=== PATIENT | female | born 1955 | race Caucasian/White ===

== ENCOUNTER 2019-04-23 10:52 | Day surgery (SDC) | payer OTHER ==
[~2019-04-23] VITALS: Ht 167.6 cm; Wt 123.4 kg
[~2019-04-23 10:52] MED LIST: ATEN50TA2 PO; BIMA01SOL OU; LISI-538 PO; METF-877 PO; NS 1,000 ML IV ONE; VITA500T PO
[2019-04-23] MEDS ORDERED: propofoL 500 MG/50 ML VIAL As Ordered ONE (12:16)
[2019-04-23] MEDS ORDERED: LIDOCAINE 2% INJ 100 MG/5 ML SDV (FOR ANES.) As Ordered ONE (12:16)
--- NOTE | 2019-04-23 12:45 | ROOR ---
Patient Name: Katlyn Guerrero Procedure Date: 04/23/2019 12:01 PM Date of : 1955 Age: 64 Room: [facility] Gender: Female Note Status: Finalized Procedure: Colonoscopy Indications: Screening for colorectal malignant neoplasm Providers: José Luis Jarrett Jr, MD Referring MD: RAQUEL LARKIN NP Requesting Provider: Medicines: Propofol per Anesthesia Complications: No immediate complications. Procedure: Pre-Anesthesia Assessment: - Prior to the procedure, a History and Physical was performed, and patient medications and allergies were reviewed. The patient is competent. The risks and benefits of the procedure and the sedation options and risks were discussed with the patient. All questions were answered and informed consent was obtained. Patient identification and proposed procedure were verified by the physician and the nurse in the pre-procedure area and in the procedure room. Mental Status Examination: alert and oriented. Airway Examination: normal oropharyngeal airway and neck mobility. Respiratory Examination: clear to auscultation. CV Examination: normal. ASA Grade Assessment: III - A patient with severe systemic disease. After reviewing the risks and benefits, the patient was deemed in satisfactory condition to undergo the procedure. The anesthesia plan was to use moderate sedation / analgesia (conscious sedation). Immediately prior to administration of medications, the patient was re-assessed for adequacy to receive sedatives. The heart rate, respiratory rate, oxygen saturations, blood pressure, adequacy of pulmonary ventilation, and response to care were monitored throughout the procedure. The physical status of the patient was re-assessed after the procedure. The Colonoscope was introduced through the anus and advanced to the cecum, identified by appendiceal orifice and ileocecal valve. The colonoscopy was performed without difficulty. The patient tolerated the procedure well. The quality of the bowel preparation was adequate. Findings: A few small-mouthed diverticula were found in the sigmoid colon. A large polyp was found in the rectum. The polyp was pedunculated. The polyp was removed with a hot snare. Resection and retrieval were complete. To prevent bleeding after the polypectomy, one hemostatic clip was successfully placed. There was no bleeding at the end of the procedure. A medium polyp was found in the sigmoid colon. The polyp was pedunculated. The polyp was removed with a hot snare. Resection and retrieval were complete. To prevent bleeding after the polypectomy, one hemostatic clip was successfully placed. There was no bleeding at the end of the procedure. A small polyp was found in the ascending colon. The polyp was removed with a cold snare. Resection and retrieval were complete. The recto-sigmoid colon, transverse colon, cecum, appendiceal orifice and ileocecal valve appeared normal. Impression: - Diverticulosis in the sigmoid colon. - One large polyp in the rectum, removed with a hot snare. Resected and retrieved. Clip was placed. - One medium polyp in the sigmoid colon, removed with a hot snare. Resected and retrieved. Clip was placed. - One small polyp in the ascending colon, removed with a cold snare. Resected and retrieved. - The recto-sigmoid colon, transverse colon, cecum, appendiceal orifice and ileocecal valve are normal. Recommendation: - Discharge patient to home (ambulatory). - Repeat colonoscopy in 3 years for surveillance based on pathology results. - Return to my office at appointment to be scheduled. José Luis Jarrett MD José Luis Jarrett Jr, MD 04/23/2019 12:44:44 PM Electronically signed by José Luis Jarrett Jr, MD Number of Addenda: 0 Note Initiated On: 04/23/2019 12:01 PM Estimated Blood Loss: Estimated blood loss: none.
[2019-04-23 13:01] VITALS: BP 144/84
== END 2019-04-23 13:15 | disposition home or self-care (01) ==
LOC: M OPP 10:52
PROVIDERS: ATTEND Surgery
DX: Z12.11 Encounter for screening for malignant neoplasm of colon (principal); K62.1 Rectal polyp; D12.5 Benign neoplasm of sigmoid colon; D12.2 Benign neoplasm of ascending colon; K57.30 Diverticulosis of large intestine without perforation or abscess without bleeding; E11.9 Type 2 diabetes mellitus without complications; Z79.84 Long term (current) use of oral hypoglycemic drugs; Z79.899 Other long term (current) drug therapy; Z87.891 Personal history of nicotine dependence

== ENCOUNTER → 2020-01-15 | Outpatient (CLI) | payer SELFPAY ==
[~2020-01-15] MED LIST changes: -NS 1,000 ML IV ONE; +VITA-243 PO; -VITA500T PO
== END ==
LOC: M LABSMTC 12:54
PROVIDERS: ATTEND Pediatrics
DX: Z20.828 Contact with and (suspected) exposure to other viral communicable diseases (principal)

== ENCOUNTER → 2020-01-28 | Outpatient (CLI) | payer SELFPAY | LOC: M LABSMTC 12:22 | PROVIDERS: ATTEND Pediatrics | DX: Z20.828 Contact with and (suspected) exposure to other viral communicable diseases (principal) ==

== ENCOUNTER → 2020-05-13 | Outpatient (CLI) | payer SELFPAY ==
[~2020-05-13] MED LIST changes: -LISI-538 PO; +LISI20TA33 PO
== END ==
LOC: M LABSMTC 13:11
PROVIDERS: ATTEND Pediatrics
DX: Z11.52 Encounter for screening for COVID-19 (principal)

== ENCOUNTER → 2020-12-23 | Outpatient (CLI) | payer SELFPAY ==
--- NOTE | 2020-12-23 14:56 | REP ---
INDICATION: PAIN IN RT KNEE. COMPARISON: None. TECHNIQUE: Weightbearing AP and lateral views of the right and left knee FINDINGS: Relatively symmetric mild tricompartmental osteoarthritic degenerative changes are appreciated bilaterally. Findings in increased sclerosis along the tibial plateau and posterior patellar margin, osteophytosis, and joint space narrowing bilaterally. No evidence for acute fracture or dislocation. No obvious effusion. 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 <Electronically signed by Bay Dutta > 12/23/20 [id number]
--- NOTE | 2020-12-23 14:58 | REP ---
INDICATION: PAIN IN RT HIP COMPARISON: None. TECHNIQUE: AP and frog-lateral views of the right hip. AP view of the left hip for comparison. FINDINGS: Age-related changes include increased sclerosis to the acetabular roof with mild joint space narrowing. No significant osteophytosis. No articular calcifications or loose bodies identified. No evidence for acute fracture or dislocation. IMPRESSION: Age-related degenerative changes. <Electronically signed by Bay Dutta > 12/23/20 [id number]
== END ==
LOC: M SOG 08:25
PROVIDERS: ATTEND Orthopaedic Surgery Adult Reconstructive Orthopaedic Surgery
DX: M25.551 Pain in right hip (principal); M25.561 Pain in right knee

== ENCOUNTER 2021-12-20 11:49 | Inpatient (IN) | payer OTHER ==
[~2021-12-20] VITALS: Ht 167.6 cm; Wt 128.7 kg
[2021-12-20] MEDS ORDERED: LATANOPROST (11:55)
[2021-12-20 14:14] LABS: BASO % 0.4 % (0.0-1.0); EOS % 0.4 % (0.0-3.0); HEMATOCRIT 42.1 % (36.0-47.0); HEMOGLOBIN 13.5 g/dl (12.0-15.5); LYMPH # 1.5 10^3/uL (1.5-5.0); LYMPH % 19.1 % (24.0-44.0); MEAN CORPUSCULAR HEMOGLOBIN 27.6 pg (27.0-33.0); MEAN CORPUSCULAR HGB CONC 32.1 g/dl (32.0-36.5); MEAN CORPUSCULAR VOLUME 85.9 fl (80.0-96.0); MONO # 0.3 10^3/uL (0.0-0.8); MONO % 3.7 % (2.0-8.0); NEUTROPHILS # 5.9 10^3/uL (1.5-8.5); NEUTROPHILS % 75.9 % (36.0-66.0); PLATELET COUNT, AUTOMATED 198 10^3/uL (150-450); WHITE BLOOD COUNT 7.8 10^3/uL (4.0-10.0)
[2021-12-20 14:58] LABS: ALBUMIN 3.6 GM/DL (3.2-5.2); ALT/SGPT 27 U/L (12-78); BILIRUBIN,TOTAL 0.3 MG/DL (0.2-1.0); BLOOD UREA NITROGEN 34 MG/DL (7-18); CALCIUM LEVEL 9.2 MG/DL (8.8-10.2); CARBON DIOXIDE LEVEL 28 MEQ/L (21-32); CHLORIDE LEVEL 107 MEQ/L (98-107); CREATININE FOR GFR 0.87 MG/DL (0.55-1.30); GLOMERULAR FILTRATION RATE > 60.0 (>45); GLUCOSE, FASTING 152 MG/DL (70-100); POTASSIUM SERUM 4.2 MEQ/L (3.5-5.1); SODIUM LEVEL 140 MEQ/L (136-145); TOTAL PROTEIN 7.3 GM/DL (6.4-8.2)
[2021-12-20] MEDS ORDERED: ISOVUE-370 76% 100ML VIAL As Ordered ONE (15:12)
[2021-12-20] MEDS: LR 1,000 ML IV SCH (17:00)
[2021-12-20] MEDS: MORPHINE 2 MG/ML 1ML VIAL IV PRN (17:44)
[2021-12-20] MEDS: ONDANSETRON 4MG 2ML VIAL IV PRN (17:45)
[2021-12-20] MEDS ORDERED: CALC-364 PO (17:55)
[2021-12-20] MEDS ORDERED: KP F1200 PO (17:55)
[2021-12-20] MEDS ORDERED: HOME MED LIST COMPLETE! XX SCH (17:55)
[2021-12-20] MEDS ORDERED: VITATAB73 PO (17:55)
[2021-12-20] MEDS ORDERED: MAGN400C2 PO (17:55)
[2021-12-20] MEDS ORDERED: K 10100T PO (17:55)
[2021-12-20] MEDS ORDERED: CVS10CAP7 PO (17:55)
[2021-12-20] MEDS ORDERED: ZINC220CA PO (17:55)
[2021-12-20] MEDS ORDERED: D31000CA4 PO (17:55)
[2021-12-20] MEDS ORDERED: LATA0.0015 OU (17:55)
[2021-12-20 21:30] VITALS: BP 153/93
[2021-12-21] VITALS (9 sets, daily range): BP systolic 127–149; BP diastolic 65–86
[2021-12-21] MEDS: KETOROLAC 30 MG/ML 1ML VIAL IV PRN (03:24)
[2021-12-21] MEDS: LR 1,000 ML IV SCH (04:20)
[2021-12-21 07:02] LABS: BASO % 0.4 % (0.0-1.0); EOS # 0.2 10^3/uL (0.0-0.5); EOS % 1.4 % (0.0-3.0); HEMATOCRIT 44.1 % (36.0-47.0); HEMOGLOBIN 14.1 g/dl (12.0-15.5); LYMPH # 3.9 10^3/uL (1.5-5.0); LYMPH % 36.3 % (24.0-44.0); MEAN CORPUSCULAR HEMOGLOBIN 27.3 pg (27.0-33.0); MEAN CORPUSCULAR VOLUME 85.5 fl (80.0-96.0); NEUTROPHILS # 5.7 10^3/uL (1.5-8.5); NEUTROPHILS % 52.5 % (36.0-66.0); PLATELET COUNT, AUTOMATED 274 10^3/uL (150-450); RED BLOOD COUNT 5.16 10^6/uL (4.00-5.40); WHITE BLOOD COUNT 10.8 10^3/uL (4.0-10.0)
[2021-12-21] MEDS: ENOXAPARIN 40MG/0.4ML SYRINGE (J1650 PER 10MG) SC SCH (07:14)
[2021-12-21 07:31] LABS: CALCIUM LEVEL 9.2 MG/DL (8.8-10.2); CREATININE FOR GFR 1.03 MG/DL (0.55-1.30); GLOMERULAR FILTRATION RATE 57.4 (>45)
[2021-12-21] MEDS: atenoloL 50 MG TAB PO SCH (08:47)
[2021-12-21] MEDS: PANTOPRAZOLE 40MG VIAL IV SCH (08:47)
[2021-12-21] MEDS ORDERED: FLUBLOK(EGG FREE)(QUAD)INFLUENZA VACC 0.5ML SYRINGE 18YRS & OLDER IM.IMMUN ONE (09:00)
[2021-12-21] MEDS ORDERED: LIDOCAINE 1% SDV 30ML VIAL As Ordered ONE (09:15)
[2021-12-21] MEDS ORDERED: BUPIVACAINE LIPOSOME/PF 1.3% 20ML VIAL (13.3MG/ML)(EXPAREL) As Ordered ONE (09:15)
[2021-12-21] MEDS ORDERED: BUPIVACAINE HCL 0.25% 30ML VIAL As Ordered ONE (09:15)
[2021-12-21] MEDS ORDERED: BUPIVACAINE HCL 0.25% 10ML VIAL As Ordered ONE (09:15)
[2021-12-21] MEDS ORDERED: UNASYN 3GM VIAL As Ordered ONE (09:36)
[2021-12-21] MEDS ORDERED: dexameTHASONE 4 MG/ML 1ML VIAL (J1100 PER 1MG) As Ordered ONE (09:58)
[2021-12-21] MEDS ORDERED: MIDAZOLAM INJ 2MG/2ML VIAL (J2250 PER 1MG) As Ordered ONE (09:58)
[2021-12-21] MEDS ORDERED: fentaNYL 100 MCG/2 ML INJECTION As Ordered ONE ×2 (09:58→11:46)
[2021-12-21] MEDS ORDERED: ROCURONIUM BROMIDE 50 MG/5 ML VIAL As Ordered ONE (09:58)
[2021-12-21] MEDS ORDERED: propofoL 200 MG/20 ML VIAL As Ordered ONE (09:58)
[2021-12-21] MEDS ORDERED: ONDANSETRON 4MG 2ML VIAL As Ordered ONE (09:58)
[2021-12-21] MEDS ORDERED: LIDOCAINE 2% 100MG/5ML SDV (FOR ANES.) As Ordered ONE (09:58)
[2021-12-21] MEDS ORDERED: SUGAMMADEX SODIUM 500 MG/5 ML VIAL (BRIDION) As Ordered ONE (09:58)
[2021-12-21] MEDS ORDERED: hydrALAZINE 20MG/ML 1ML VIAL (J0360 PER 20MG) As Ordered ONE (10:10)
[2021-12-21] MEDS ORDERED: ACETAMINOPHEN 1000MG 100ML IV BAG As Ordered ONE (10:12)
[2021-12-21] MEDS ORDERED: GLYCOPYRROLATE INJ 0.2 MG/ML 2 ML VIAL As Ordered ONE (10:13)
[2021-12-21] MEDS ORDERED: ePHEDrine SULFATE 25 MG/5 ML(5MG/ML) SYRINGE As Ordered ONE (10:34)
[2021-12-21] MEDS ORDERED: LR 1,000 ML IV SCH (14:00)
[2021-12-21] MEDS ORDERED: fentaNYL 100 MCG/2 ML INJECTION IV PRN (14:00)
[2021-12-21] MEDS ORDERED: oxyCODONE 5MG TAB PO PRN (14:00)
[2021-12-21] MEDS ORDERED: ONDANSETRON 4MG 2ML VIAL IV PRN (14:00)
[2021-12-21] MEDS ORDERED: MORPHINE 2 MG/ML 1ML VIAL IV PRN (14:00)
[2021-12-21] MEDS: ONDANSETRON 4MG 2ML VIAL IV PRN (14:01)
[2021-12-21] MEDS: MORPHINE 2 MG/ML 1ML VIAL IV PRN (22:31)
[2021-12-22] VITALS (8 sets, daily range): BP systolic 118–167; BP diastolic 62–95; O2SAT 92–93
[2021-12-22] MEDS: KETOROLAC 30 MG/ML 1ML VIAL IV PRN (04:20)
[2021-12-22] MEDS ORDERED: PERCOCET 5MG/325MG TAB PO PRN (08:15)
[2021-12-22] MEDS: atenoloL 50 MG TAB PO SCH (08:54)
[2021-12-22] MEDS: PANTOPRAZOLE 40MG VIAL IV SCH (08:57)
[2021-12-22] MEDS: ENOXAPARIN 40MG/0.4ML SYRINGE (J1650 PER 10MG) SC SCH (08:57)
[2021-12-22] MEDS ORDERED: FLUBLOK(EGG FREE)(QUAD)INFLUENZA VACC 0.5ML SYRINGE 18YRS & OLDER IM.IMMUN ONE (09:00)
[2021-12-22] MEDS: PERCOCET 5MG/325MG TAB PO PRN ×2 (13:01→21:22)
[2021-12-22] MEDS ORDERED: MOM 30ML SUSPENSION UDC PO ONE (14:30)
[2021-12-23 02:00] VITALS: BP 157/83
[2021-12-23 05:23] VITALS: BP 158/83
[2021-12-23 05:50] LABS: BASO % 0.2 % (0.0-1.0); EOS # 0.2 10^3/uL (0.0-0.5); EOS % 2.4 % (0.0-3.0); HEMATOCRIT 33.3 % (36.0-47.0); HEMOGLOBIN 10.7 g/dl (12.0-15.5); LYMPH # 2.2 10^3/uL (1.5-5.0); LYMPH % 34.2 % (24.0-44.0); MEAN CORPUSCULAR HEMOGLOBIN 27.6 pg (27.0-33.0); MEAN CORPUSCULAR HGB CONC 32.1 g/dl (32.0-36.5); MEAN CORPUSCULAR VOLUME 85.8 fl (80.0-96.0); MONO # 0.6 10^3/uL (0.0-0.8); MONO % 9.2 % (2.0-8.0); NEUTROPHILS # 3.4 10^3/uL (1.5-8.5); NEUTROPHILS % 53.7 % (36.0-66.0); PLATELET COUNT, AUTOMATED 167 10^3/uL (150-450); RED BLOOD COUNT 3.88 10^6/uL (4.00-5.40); WHITE BLOOD COUNT 6.3 10^3/uL (4.0-10.0)
[2021-12-23 06:28] LABS: BLOOD UREA NITROGEN 24 MG/DL (7-18); CALCIUM LEVEL 8.3 MG/DL (8.8-10.2); CARBON DIOXIDE LEVEL 29 MEQ/L (21-32); CHLORIDE LEVEL 108 MEQ/L (98-107); CREATININE FOR GFR 0.75 MG/DL (0.55-1.30); GLOMERULAR FILTRATION RATE > 60.0 (>45); GLUCOSE, FASTING 107 MG/DL (70-100); POTASSIUM SERUM 3.9 MEQ/L (3.5-5.1); SODIUM LEVEL 141 MEQ/L (136-145)
[2021-12-23] MEDS: ENOXAPARIN 40MG/0.4ML SYRINGE (J1650 PER 10MG) SC SCH (08:42)
[2021-12-23] MEDS: PANTOPRAZOLE 40MG VIAL IV SCH (08:42)
[2021-12-23 08:45] VITALS: BP 145/68
[2021-12-23] MEDS: atenoloL 50 MG TAB PO SCH (08:45)
[2021-12-23] MEDS ORDERED: PERCOCET PO (09:43)
[2021-12-23] MEDS: PERCOCET 5MG/325MG TAB PO PRN (09:45)
== END 2021-12-23 12:20 | disposition home or self-care (01) | DRG 354 ==
LOC: M ED 11:49 → M ED INP 17:00 → ENRESERV 20:53 → M MSPAV 21:29
PROVIDERS: ADMIT Surgery; ATTEND Surgery
PROC: 8E0W4CZ Robotic Assisted Procedure of Trunk Region, Percutaneous Endoscopic Approach (ICD-10-PCS; 2021-12-21)
PROC: 0WUF4JZ Supplement Abdominal Wall with Synthetic Substitute, Percutaneous Endoscopic Approach (ICD-10-PCS; principal; 2021-12-21 10:00)
DX: K43.0 Incisional hernia with obstruction, without gangrene (principal); Z68.42 Body mass index [BMI] 45.0-49.9, adult; E11.9 Type 2 diabetes mellitus without complications; I10 Essential (primary) hypertension; E66.01 Morbid (severe) obesity due to excess calories; Z79.84 Long term (current) use of oral hypoglycemic drugs; Z79.899 Other long term (current) drug therapy

== ENCOUNTER → 2023-09-26 | Outpatient (CLI) | payer OTHER, MEDICARE ==
[~2023-09-26] MED LIST changes: +CALC-364 PO; +CVS10CAP7 PO; +D31000CA4 PO; +K 10100T PO; +KP F1200 PO; +LATA0.0015 OU; +LATANOPROST; +MAGN400C2 PO; +PERCOCET PO; +VITATAB73 PO; +ZINC220CA PO
[2023-09-26 16:27] LABS: HEMATOCRIT 40.7 % (36.0-47.0); HEMOGLOBIN 13.2 g/dl (12.0-15.5); MEAN CORPUSCULAR HGB CONC 32.4 g/dl (32.0-36.5); MEAN CORPUSCULAR VOLUME 86.4 fl (80.0-96.0); PLATELET COUNT, AUTOMATED 192 10^3/uL (150-450); RED BLOOD COUNT 4.71 10^6/uL (4.00-5.40); WHITE BLOOD COUNT 5.9 10^3/uL (4.0-10.0)
[2023-09-26 16:45] LABS: HEMOGLOBIN A1c 5.8 % (4.0-6.0)
[2023-09-26 16:55] LABS: ALBUMIN 3.5 G/DL (3.2-5.2); ALKALINE PHOSPHATASE 68 U/L (46-116); ALT/SGPT 24 U/L (7.0-40); AST/SGOT < 8 U/L (<34); BILIRUBIN,TOTAL 0.4 MG/DL (0.3-1.2); BLOOD UREA NITROGEN 34 MG/DL (9-23); CALCIUM LEVEL 9.6 MG/DL (8.3-10.6); CARBON DIOXIDE LEVEL 29 MMOL/L (20-31); CHLORIDE LEVEL 109 MMOL/L (98-107); CHOLESTEROL LEVEL 270 MG/DL (<200); CHOLESTEROL RISK RATIO 5.36 (<5); CREATININE FOR GFR 0.89 MG/DL (0.55-1.30); GLOMERULAR FILTRATION RATE > 60.0 (>45); GLUCOSE, FASTING 91 MG/DL (74-106); HDL CHOLESTEROL 50.3 MG/DL (>40); LDL CHOLESTEROL 183.5 MG/DL (<100); NON-HDL-C 219.7 MG/DL; POTASSIUM SERUM 3.8 MMOL/L (3.5-5.1); SODIUM LEVEL 143 MMOL/L (136-145); TOTAL PROTEIN 6.5 G/DL (5.7-8.2); TRIGLYCERIDES LEVEL 181 MG/DL (<150)
[2023-09-26 16:57] LABS: TOTAL 25(OH) VITAMIN D 88.4 NG/ML (20.0-100.0)
[2023-09-30 08:34] LABS: INSULIN TOTAL2 7.9 uIU/mL (<=18.4)
== END ==
LOC: M LAB 15:42
PROVIDERS: ATTEND Registered Nurse
DX: E11.65 Type 2 diabetes mellitus with hyperglycemia (principal); E78.00 Pure hypercholesterolemia, unspecified; E55.9 Vitamin D deficiency, unspecified; Z79.899 Other long term (current) drug therapy